=== PATIENT | female | born 1940 | race Caucasian/White ===

== ENCOUNTER 2019-07-18 08:36 | Outpatient (REF) | payer MEDICARE, SELFPAY ==
[2019-07-18 12:34] LABS: Anion Gap 6.9 mmol/L (3-11); BUN 20 mg/dL (7-18); CO2 29.1 mmol/L (21.0-32.0); CREATININE 0.83 mg/dL (0.55-1.02); Calcium 8.8 mg/dL (8.5-10.1); Calculated LDL 194 mg/dL; Chloride 103 mmol/L (98-107); Cholesterol 300 mg/dL (50-200); Glucose 93 mg/dL (70-100); HDL Cholesterol 90 mg/dL (40-60); Potassium 4.1 mmol/L (3.5-5.1); Sodium 139 mmol/L (136-145); Triglyceride 82 mg/dL (30-150)
== END 2019-07-18 08:56 ==
LOC: NCHCN 08:36
PROVIDERS: PCP Internal Medicine; Visit Provider Nurse Practitioner Family
DX: E78.5 Hyperlipidemia, unspecified (principal)
CPT/HCPCS: 80048; 80061

== ENCOUNTER 2021-01-09 09:45 | Outpatient (CLI) | payer MEDICARE, SELFPAY ==
--- NOTE | 2021-01-09 13:51 | DI.CT_ITS ---
EXAM: CT HEAD WO CLINICAL HISTORY: HX CLOSED HEAD INJURY Z87.820. TECHNIQUE: Imaging Protocol: Axial computed tomography images with coronal and sagittal reformatted images were created and reviewed COMPARISON: No exams were available for comparison FINDINGS: There are no skull fractures nor fluid in the visualized paranasal sinuses. There is no evidence of intracranial hemorrhage, mass effect, or shift of midline structures. There are no extra-axial fluid collections. The ventricles are not enlarged or shifted and there is no blo od within the ventricular system nor within the basal cisterns. The amount of involutional change-atrophy is age appropriate. IMPRESSION: No acute intracranial findings on this noninfused CT scan of the brain. RADIATION DOSE DELIVERED: 778.11mGy.cm Total DLP DATA REPOSITORY: All CT scans at this facility are submitted to the National Radiology Data Registry (NRDR) Dose Index Registry (DIR) with the [employer] ([employer]). RADIATION OPTIMIZATION: All CT scans at this facility use at least one of these dose optimization te chniques: automated exposure control; mA and/or kV adjustment per patient size (includes targeted exa ms where dose is matched to clinical indication); or iterative reconstruction.
== END 2021-01-09 10:05 ==
PROVIDERS: PCP Internal Medicine; Visit Provider Family Medicine
DX: G31.89 Other specified degenerative diseases of nervous system (principal); Z87.820 Personal history of traumatic brain injury
CPT/HCPCS: 70450

== ENCOUNTER 2025-01-27 01:27 | Outpatient (CLI) | payer MEDICARE, SELFPAY ==
--- NOTE | 2025-01-27 | DI.DEXA_ITS ---
Exam(s) XR DEXA BONE DENSITY W/WO DONNA EXAM: XR DEXA BONE DENSITY W/WO DONNA CLINICAL HISTORY: Postmenopausel state; Z78.0 Asymptomatic menopausal state TECHNIQUE: COMPARISON: No exams were available for comparison FINDINGS: Lateral Spine Image: Unremarkable. No compression deformities identified. Left hip: Total T-Score: -1.3 Total Z-Score: 1.1 T- and Z-scores: Findings are consistent with osteopenia. Lumbar Spine: Total T-Score: -0.2 Total Z-Score: 2.5 T- and Z-scores: Within normal limits. IMPRESSION: No evidence of osteoporosis.
== END 2025-01-27 01:47 ==
LOC: DI 01:28
PROVIDERS: PCP Internal Medicine; Visit Provider Family Medicine
DX: Z78.0 Asymptomatic menopausal state (principal); Z13.820 Encounter for screening for osteoporosis
CPT/HCPCS: 77080

== ENCOUNTER 2025-09-11 12:18 | Outpatient (REF) | payer MEDICARE, SELFPAY ==
[2025-09-11 15:22] LABS: Abs Immature Grans 0.01 10^3/uL (0.0-0.06); HCT 40.0 % (36.0-46.0); HGB 13.6 g/dL (11.2-15.7); Immature Grans % 0.1 %; MCH 32.2 pg (27.0-33.0); MCHC 34.0 % (32.0-36.0); MCV 95 fL (80-95); MPV 8.9 fL (8.0-11.0); Platelet Count 304 10^3/uL (130-400); RBC 4.23 10^6/uL (3.93-5.22); RDW 12.6 % (11.7-14.6); RDW-SD 44.0 fL; WBC 6.81 10^3/uL (4.4-10.8)
[2025-09-11 15:55] LABS: Vitamin B12 329 pg/mL (211-911)
[2025-09-11 15:57] LABS: TSH (W/Ref FT4) 2.84 uIU/mL (0.55-4.78); Vitamin D 25 Total 23 ng/mL (30-100)
[2025-09-11 16:43] LABS: Anion Gap 9.4 mmol/L (3-11); BUN 22 mg/dL (9-23); CO2 27.6 mmol/L (20.0-31.0); Calcium 9.2 mg/dL (8.3-10.6); Chloride 105 mmol/L (98-107); Cholesterol 315 mg/dL (<200); Glucose 89 mg/dL (74-106); HDL Cholesterol 81 mg/dL (>40); Potassium 4.6 mmol/L (3.5-5.1); Sodium 142 mmol/L (136-145)
== END 2025-09-11 12:19 | disposition home or self-care (01) ==
LOC: NCHCN 12:18
PROVIDERS: PCP Internal Medicine; Visit Provider Family Medicine
DX: E78.5 Hyperlipidemia, unspecified (principal); M85.852 Other specified disorders of bone density and structure, left thigh; R41.81 Age-related cognitive decline
CPT/HCPCS: 80048; 80061; 82306; 82607; 84443; 85025